=== PATIENT | female | born 1990 | race Caucasian/White ===

== ENCOUNTER 2023-03-02 11:49 | Outpatient (CLI) | payer BC, SELFPAY | END 2023-03-02 11:50 | disposition home or self-care (01) | LOC: NFLDREF 03-04 06:15 | PROVIDERS: Visit Provider Registered Nurse | DX: L65.9 Nonscarring hair loss, unspecified (principal) | CPT/HCPCS: 84443 ==

== ENCOUNTER 2023-07-12 19:37 | Emergency (ER) | payer BC, SELFPAY ==
[2023-07-12 19:40] VITALS: BP 121/78; PULSE 94; RESP 18; TEMP 36.8; O2SAT 99; BMI 27.4
[2023-07-12 20:17] LABS: Basophils Absolute Auto 0.01 K/uL (0.00-0.30); Basophils Percent Auto 0.1 % (0.0-3.0); Eosinophils Absolute Auto 0.01 K/uL (0.00-0.50); Eosinophils Percent Auto 0.1 % (0.0-7.0); Hematocrit 40.1 % (33.0-51.0); Immature Granulocytes Abs Auto 0.02 K/uL (0.00-0.30); Immature Granulocytes Pct Auto 0.3 %; Lymphocytes Percent Auto 5.3 % (20-44); Mean Corpuscular HGB Conc 35 gm/dL (32-36); Mean Corpuscular Hemoglobin 31 pg (26-34); Mean Corpuscular Volume 89 fL (80-100); Neutrophils Percent Auto 89.2 % (42.0-72.0); Platelet Count* 133 K/uL (140-440); RDW Coefficient of Variation % 11.9 % (11.5-15.5); Red Blood Count 4.53 m/uL (4.00-5.20); White Blood Count* 7.87 K/uL (4.50-11.00)
[2023-07-12] MEDS: ONDANSETRON 2 MG/ML inj 4 MG IVP (20:18)
[2023-07-12 20:19] LABS: Appearance Urine Clear (Clear); Bilirubin Urine Negative (Negative); Blood Urine Negative (Negative); Color Urine Yellow (Yellow); Glucose Urine Negative (Negative); Ketones Urine Negative (Negative); Leukocyte Esterase Urine Trace (Negative); Nitrite Urine Negative (Negative); Protein Urine Negative (Negative); Specific Gravity Urine 1.025 (1.000-1.030); Urobilinogen Urine 0.2 (0.2-1.0)
[2023-07-12] MEDS: 0.9 % SODIUM CHLORIDE 1000 ml 1,000 ML IV (20:25)
[2023-07-12 20:26] LABS: Slide Review Reflex No
[2023-07-12 20:30] LABS: Chloride* 102 mmol/L (96-114); Potassium* 4.2 mmol/L (3.6-5.1); Sodium* 135 mmol/L (135-149)
[2023-07-12 20:33] LABS: Anion Gap 8 mEq/L (7-15); Blood Urea Nitrogen* 16 mg/dL (5-24); Calcium* 9.8 mg/dL (8.4-10.6); Carbon Dioxide* 25 mmol/L (20-32); Creatinine* 0.4 mg/dL (0.5-1.5); Est. Creatinine Clearance* 189.02; Estimated Glomerular Filt Rate 135 ml/min; Glucose* 111 mg/dL (60-115)
[2023-07-12 20:36] LABS: Bacteria Urine Few; Mucus Urine Few; RBC Urine 0-2 (0-2); Squamous Epithelial Cell Urine Few (None-Few); WBC Urine 0-2 (0-5)
--- NOTE | 2023-07-12 21:28 | ED_ITS ---
HPI - General Adult General Date Seen: 07/12/23 Chief complaint: Nausea/Vomiting Stated complaint: fainted, 7 weeks preg Time Seen by Provider: 07/12/23 19:44 Source: patient, family and RN notes reviewed Mode of arrival: ambulatory Limitations: no limitations History of Present Illness HPI narrative: Patient is a 32-year-old , about 7 weeks by dates. She has had problems with nausea she says ever since realizing she was . She did not have significant problems with nausea and vomiting with her 1st . She has not really been able to eat very much because everything turns her stomach, but she has not had vomiting until today. She has been able to keep up with water, but she says anything else to drink seems to upset her stomach as well, today she tried some sugar free Gatorade and vomited multiple times. Her says that at 1 point she was throwing up in the bathroom and then was briefly syncopal. Awakened without difficulty. No injuries. No diarrhea, no abdominal pain, no fevers, no vaginal bleeding. General health is good. She does not smoke or drink. Related Data Home Medications Medication Instructions Recorded Confirmed docosahexaenoic acid 200 mg mg PO 01/14/23 01/14/23 capsule ( DHA) Allergies Allergy/AdvReac Type Severity Reaction Status Date / Time No Known Drug Allergies Allergy Verified 07/12/23 19:44 Review of Systems Status of ROS: Reports: 10 or more systems reviewed and unremarkable except as noted in History and below [facility] Medical History Normal spontaneous vaginal delivery ?O80 - Encounter for full-term uncomplicated delivery (ICD-10) Chorioamnionitis ?O41.1290 - Chorioamnionitis, unspecified trimester, not applicable or unspecified (ICD-10) Surgical History History of tonsillectomy and adenoidectomy ?Z90.89 - Acquired absence of other organs (ICD-10) History of placement of ear tubes ?Z96.22 - Myringotomy tube(s) status (ICD-10) Family History Grandfather Diabetes Family/Other Colon cancer Mother Colon polyp Aunt Colon polyp Social History Smoking Status: Never smoker Do you use any of these nicotine containing products: None Second hand tobacco smoke exposure: No How often do you have a drink containing alcohol: never AUDIT-C Alcohol total score: 0 Non-prescribed substance use: denies use Little interest or pleasure in doing things: not at all Feeling down, depressed, or hopeless: not at all Exam Narrative: Exam Narrative: Vital signs as noted above. In general, an alert, well-appearing patient. Head: Normocephalic, atraumatic. Eyes: Pupils are equal reactive. Extraocular movements are full. Conjunctivae are normal. ENT: Mucous membranes are moist. Throat is normal. Neck: Supple without lymphadenopathy. Heart: Regular rate and rhythm. No murmur or rub. Lungs: Clear bilaterally. No increased work of breathing, crackles or wheezes. Abdomen: Soft and nontender. No organomegaly. Extremities: Well perfused. No edema. No calf tenderness. Pulses intact. Neurologic: Patient is alert and oriented to person and place. Speech is fluent. Face is symmetric. Moves all extremities equally. Affect: Normal. Skin: Warm and dry. Well perfused. Const: Vital Signs, click to edit/add: Vital Signs - 24 hr 07/12/23 19:40 Temperature 98.3 F Pulse Rate [Pulse Oximeter] 94 Respiratory Rate 18 Blood Pressure [Ri ght Upper Arm] 121/78 Pulse Oximetry 99 Oxygen Delivery Me thod Room Air Course Course ED Course: Overall she is well-appearing, mildly tachycardic. Will establish an IV, give a L of normal saline, check some labs. An EKG done here showed a sinus rhythm, ventricular rate of 85, corrected QT of 447 milliseconds, normal [place] interval. No acute ST segment changes, normal T-waves. Overall, syncopal is likely vasovagal, perhaps with dehydration contributing. Labs here are generally reassuring. Her white blood cell count is normal, hemoglobin 14. Platelets slightly low 133. Metabolic panel shows normal sodium potassium, CO2 of 25, BUN of 16, creatinine of 0.4. UA is slightly concentrated but no ketones, 0-2 red cells and 0-2 white cells. She is feeling improved. I think it is reasonable to let her go home, will give her some Zofran, she can try Unisom and B6 as well. She has an appointment in about a week with her OB for her 1st visit, certainly can touch base with them if she does not feel things are improving with the Zofran. Is possible this is all related to hyperemesis, she could also just have a GI bug. If she has severe abdominal pain, high fevers, bloody stools, or other worsening, return to the emergency department at any time. Vital Signs Vital signs: Initial Vital Signs Temperature 98.3 F 07/12/23 19:40 Temperature Source Temporal Artery Scan 07/12/23 19:40 Pulse Rate 94 07/12/23 19:40 Respiratory Rate 18 07/12/23 19:40 Blood Pressure 121/78 07/12/23 19:40 Blood Pressure Mean 92 07/12/23 19:40 Blood Pressure Position Sitting 07/12/23 19:40 Pulse Oximetry 99 07/12/23 19:40 Oxygen Delivery Method Room Air 07/12/23 19:40 Vital Signs Temperature 98.3 F 07/12/23 19:40 Pulse Rate 94 07/12/23 19:40 Respiratory Rate 18 07/12/23 19:40 Blood Pressure 121/78 07/12/23 19:40 Pulse Oximetry 99 07/12/23 19:40 Oxygen Delivery Method Room Air 07/12/23 19:40 Temperature 98.3 F 07/12/23 19:40 Pulse Rate 94 07/12/23 19:40 Respiratory Rate 18 07/12/23 19:40 Blood Pressure 121/78 07/12/23 19:40 Pulse Oximetry 99 07/12/23 19:40 Oxygen Delivery Method Room Air 07/12/23 19:40 Medications Administered Medications: Discontinued Medications Generic Name Dose Route Start Last Admin Trade Name Freq PRN Reason Stop Dose Admin Sodium Chloride 1,000 mls @ 1,000 mls/hr 07/12/23 20:00 07/12/23 21:06 0.9 % Sodium Chloride 1000 Ml IV 07/12/23 20:59 Infused .Q1H WILBERT Infusion Ondansetron HCl 4 mg 07/12/23 19:54 07/12/23 20:18 Ondansetron 2 Mg/Ml Inj IVP 07/12/23 19:55 4 mg ONCE ONE Administration Medical Decision Making Lab Data Labs: Lab Results 07/12/23 07/12/23 Range/Units 19:54 20:10 WBC 7.87 (4.50-11.00) K/uL RBC 4.53 (4.00-5.20) m/uL Hgb 14.0 (12.0-16.0) gm/dL Hct 40.1 (33.0-51.0) % MCV 89 (80-100) fL MCH 31 (26-34) pg MCHC 35 (32-36) gm/dL RDW Coeff of Francisco Javier 11.9 (11.5-15.5) % Plt Count 133 L (140-440) K/uL Neut % (Auto) 89.2 H (42.0-72.0) % Lymph % (Auto) 5.3 L (20-44) % Taliaferro % (Auto) 5.0 (0.0-11.0) % Eos % (Auto) 0.1 (0.0-7.0) % Baso % (Auto) 0.1 (0.0-3.0) % Neut # (Auto) 7.00 (1.7-7.0) K/uL Lymph # (Auto) 0.40 L (0.90-2.90) K/uL Taliaferro # (Auto) 0.40 (0.00-0.90) K/UL Eos # (Auto) 0.01 (0.00-0.50) K/uL Baso # (Auto) 0.01 (0.00-0.30) K/uL Abs Immat Gran (auto) 0.02 (0.00-0.30) K/uL Imm/Tot Granulo (auto) 0.3 % Sodium 135 (135-149) mmol/L Potassium 4.2 (3.6-5.1) mmol/L Chloride 102 (96-114) mmol/L Carbon Dioxide 25 (20-32) mmol/L Anion Gap 8 (7-15) mEq/L BUN 16 (5-24) mg/dL Creatinine 0.4 L (0.5-1.5) mg/dL Estimated Creat Clear 189.02 Estimated GFR 135 ml/min Glucose 111 (60-115) mg/dL Calcium 9.8 (8.4-10.6) mg/dL Urine Color Yellow (Yellow) Urine Appearance Clear (Clear) Urine pH 7.0 (5.0-8.5) Ur Specific [place] 1.025 (1.000-1.030) Urine Protein Negative (Negative) Urine Glucose (UA) Negative (Negative) Urine Ketones Negative (Negative) Urine Blood Negative (Negative) Urine Nitrite Negative (Negative) Urine Bilirubin Negative (Negative) Urine Urobilinogen 0.2 (0.2-1.0) Ur Leukocyte Esterase Trace A (Negative) Urine RBC 0-2 (0-2) Urine WBC 0-2 (0-5) Ur Squamous Epith Cells Few (None-Few) Urine Bacteria Few A (None) Urine Mucus Few A (None) Discharge Plan Discharge Clinical Impression: Syncope, Vomiting during Patient Disposition: Home, Self-Care Condition: Improved Instructions: Nausea and Vomiting in (ED), Syncope (DC) Additional Instructions: Zofran if needed for further nausea or vomiting, you can try Unisom/B6 as well. If food does not seem possible, it is fine to stick with clear liquids for now, just make sure your getting some calories in. Call your OB Clinic if you do not find that things are stabilizing using Zofran. Return at any time for acute worsening such as high fevers, bloody stools, significant abdominal pain etcetera. Prescriptions: No Action DHA 200 mg capsule PO Follow Up/Referrals: Dayanna Dc, GLASS MELT OPERATOR [Primary Care Provider] - Stand Alone Forms: [employer] Info Instructions
== END 2023-07-12 21:10 | disposition home or self-care (01) ==
PROVIDERS: Emergency Provider Emergency Medicine; PCP Registered Nurse
DX: R11.2 Nausea with vomiting, unspecified (principal); R55 Syncope and collapse; Z3A.01 Less than 8 weeks gestation of pregnancy
CPT/HCPCS: 36415; 80048; 81001; 85025; 87086; 93005; 96374; 99283; 99284; J2405; J7030

== ENCOUNTER 2023-07-16 07:03 | Outpatient (CLI) | payer BC, SELFPAY ==
--- NOTE | 2023-07-16 07:15 | US_ITS ---
Patient: YULISSA DOYLE Facility:?[facility] Patient ID:?[id number] Site Patient ID:?[id number]. Site :?1990 Study:?US-OB Pelvis DATING AND VIABILITY-07/16/2023 7:35:53 AM Ordering Physician:?DENISHA DAVIS Final Report: INDICATION: First trimester scan, establish dates. COMPARISON: None. TECHNIQUE: Real-time parham-scale imaging of the pelvis was performed. FINDINGS: Sonographic imaging demonstrates a single living intrauterine gestation. The embryo demonstrates a regular cardiac rate measuring 180 beats per minute. The embryo`s crown-rump length measurement of 1.9 cm corresponds to a gestational age of 8 weeks 3 days with a sonographic due date of 02/22/2024. There is a normal-appearing yolk sac. There are no gross abnormalities noted within the embryo at this early state of development. The gestational sac has a normal appearance. There is no evidence of a perigestational hemorrhage. The amount of fluid within the sac appears appropriate for gestational age. The cervix is closed. The myometrium appears normal. The ovaries are of normal size. Corpus luteal cyst right ovary measuring 2.7 x 2.0 x 2.3 cm. There are no suspicious fluid collections noted in the cul-de-sac. IMPRESSION: Normal first trimester OB ultrasound exam. Gestational age calculated at 8 weeks 3 days with a sonographic due date of 02/22/2024. Dictated by Stephon Franklin MD @ 07/16/2023 11:43:59 AM Signed by:?Stephon Franklin MD @07/16/2023 11:43:59 AM (Electronic Signature)
== END 2023-07-16 07:04 | disposition home or self-care (01) ==
LOC: US 07:04
PROVIDERS: Visit Provider Registered Nurse
DX: Z34.91 Encounter for supervision of normal pregnancy, unspecified, first trimester (principal); Z3A.08 8 weeks gestation of pregnancy
CPT/HCPCS: 76817; 86592; 86703; 86704; 86706; 86762; 86787; 86803; 86850; 86900; 86901; 87086; 87340; 87491; 87591

== ENCOUNTER 2023-09-14 15:52 | Outpatient (CLI) | payer BC, SELFPAY ==
--- OUTSIDE RECORDS SUMMARY | 2023-09-14 15:54 | XMS_ITS | Clinical Summary ---
Author Name Unknown Organization [facility] [employer] Address [place], [place] [address] Care Team Providers Care Emergency Veterinarian Name Role Phone Tayler Greene MD Primary Care Prov ider Allergies No known active allergies Medications Medication Sig Dispensed Refills Start Date End Date Status Tri-Linyah 0.18/0.215/0.25 mg-35 mcg (28) tablet 03/25/2021 Active Active Problems Problem Noted Date Diagnosed Date Other acne 04/25/2007 Immunizations Name Administration Dates Next Due AMB Influenza, IIV4 PF (=>6 mos Flulaval,Fluzone Fluarix)(Flu Clinic Only) 01/28/2018 DT (Age < 7 years) 09/12/2002 DTP 07/11/1992, 2,03/21/1991,12/26 HIB PRP-T (ActHIB,Hiberix) 06/05/1992,,03/21/1991,12/26 Hepatitis B (Peds) 06/11/2003,10/26/2002, 003 Human Papilloma Virus Vaccine 03/04/2007, 007,09/01/2006 03/04/2007 Influenza, IIV3 (Age >=3 years) 01/25/2009,03/08,03/08/2007 Influenza, IIV4 (=>6mos) MDV 01/26/2017 MMR 09/12/2002,06/05/1992 Meningococcal Vaccine (Menactra) 10/06/2005 Oral Polio Vaccine 07/11/1992,03/21/1991, 991 Tdap 07/03/2010 Family History Medical History Relation Name Comments Good Health Father Good Health Mother Relation Name Status Comments Brother Alive Father Alive Maternal Grandfather Alive Maternal Grandmother Alive Mother Alive Paternal Grandfather Alive Paternal Grandmother Alive Social History Tobacco Use Types Packs/Day Years Used Date Smoking Tobacco: Former Cigarettes Smokeless Tobacco: Never Tobacco Cessation:Counseling Given: Yes Comments:quit apr 2018 Alcohol Use Standard Drinks/Week Comments Yes 1 (1 standard drink = 0.6 oz pur e alcohol) PHQ-2 Answer Date Recorded PHQ-2 Score 0 06/25/2018 Sex and Gender Information Value Date Recorded Sex Assigned at Not on file Gender Identity Not on file Sexual Orientation Not on file Obstetrics History Para Term AB IAB SAB Ectopic Multiple Livin g Live Births 0 0 0 0 0 0 0 0 0 0 Last Filed Vital Signs Vital Sign Reading Time Taken Comments Blood Pressure 118/64 08/19/2021 1:58 PM CDT Pulse 74 08/19/2021 1:58 PM CDT Temperature 36.8 ??C (98.2 ??F) 07/28/2021 5:59 PM CD T Respiratory Rate 16 07/28/2021 5:59 PM CDT Oxygen Saturation 99% 07/28/2021 5:59 PM CDT Inhaled Oxygen Concentration - - Weight 75.8 kg (167 lb) 07/28/2021 5:59 PM CDT Height 167 cm (5' 5.75) 02/01/2019 3:59 PM CDT Body Mass Index 27.16 02/01/2019 3:59 PM CDT Plan of Treatment Health Maintenance Due Date Last Done Comments HIV for age 15-65 2005 Hepatitis C screening for age 18-79 2008 Depression screening for age 12+ 09/13/2019 09/12/2018, 11/15/2017, 07/27/2016 BMI (ht and wt on same day) for age 18+ 02/02/2020 02/01/2019, 09/12/2018, 11/15/2017, Additional history exists Tetanus booster 07/03/2020 07/03/2010 COVID-19 vaccine series ( season) 2022 04/29/2021, 10/01/2020, 09/10/2020 Influenza for age 9-49 12/26/2023 8, 01/26/2017, 01/25/2009, Additional history exists Pap test for age 21-65 09/08/2024 2, 09/08/2021, 09/12/2018, Additional history exists Tdap Completed 07/03/2010 Pneumococcal series for age 6-64 Aged Out No longer eligible based on patient's age to complete this topic Procedures Procedure Name Priority Date/Time Associated Diagnosis Comments HPV THIN PREP Routine 09/08/2021 5:30 PM CDT from Last 3 Months or Most Recently Relevant to Health Maintenance Results * HPV HIGH RISK (09/08/2021 5:30 PM CDT) TYPE 16 Negative Negative 09/11/2021 10:54 AM CDT [facility] TYPE 18 Negative Negative 09/11/2021 10:54 AM CDT [facility] OTHER HIGH RISK TYPES Negative Negative 09/11/2021 10:54 AM CDT [facility] Other (Cervical/Vagina l) 09/08/2021 5:30 PM CDT 09/10/2021 7:42 AM CDT Narrative [facility] - 09/11/2021 10:54 AM CDT HPV types 16, 18, 31, 33, 35, 39, 45, 51, 52, 56, 58, 59, 66 and 68 DNA were undetectable or below the pre-set threshold. Methodology: Rema Regina 4800 HPV Test Dayanna Dc NP [facility] [address] [place] [address], from Last 3 Months or Most Recently Relevant to Health Maintenance Care Teams Emergency Veterinarian Relationship Specialty Start Date End Date Tayler Greene MD [address] [place] [address] PCP - General 09/25/05
== END 2023-09-14 15:53 | disposition home or self-care (01) ==
PROVIDERS: Visit Provider Registered Nurse
DX: Z34.92 Encounter for supervision of normal pregnancy, unspecified, second trimester (principal); Z3A.16 16 weeks gestation of pregnancy
CPT/HCPCS: 82565; 82570; 84156; 84450; 84460; 84520

== ENCOUNTER 2023-10-08 12:50 | Outpatient (CLI) | payer BC, SELFPAY ==
--- OUTSIDE RECORDS SUMMARY | 2023-10-08 12:52 | XMS_ITS | Clinical Summary ---
Author Organization [employer] [facility] [email or web address] [facility] Address [place], [place] [address] Care Team Providers Care Sales And Service Advisor Name Role Phone Tayler Greene MD Primary [...] 16 Negative Negative 09/11/2021 10:54 AM CDT [facility] TYPE 18 Negative Negative 09/11/2021 10:54 AM CDT [facility] OTHER HIGH RISK TYPES Negative Negative 09/11/2021 10:54 AM CDT [facility] Other (Cervical/Vagina l) 09/08/2021 5:30 PM CDT 09/10/2021 7:42 AM CDT Narrative [facility] - 09/11/2021 10:54 AM CDT HPV types 16, 18, 31, 33, 35, 39, 45, 51, 52, 56, 58, 59, 66 and 68 DNA were undetectable or below the pre-set threshold. Methodology: Rema Regina 4800 HPV Test Dayanna Dc NP [facility] [address] [place] [address], from Last 3 Months or Most Recently Relevant to Health Maintenance Care Teams Sales And Service Advisor Relationship Specialty Start Date End Date Tayler Greene MD [address] [place] [address] PCP - General 09/25/05
--- NOTE | 2023-10-08 13:00 | CRLHL7_ITS ---
For Patients: As a result of the Century Cures Act, medical imaging exams and procedure reports are released immediately into your electronic medical record. You may view this report before your referring provider. If you have questions, please contact your health care provider. HISTORY: anatomic survey. COMPARISON: None available of this gestation. TECHNIQUE: Ultrasound examination of the is performed with transabdominal technique. FINDINGS: A single intrauterine gestation is seen in cephalic presentation with regular cardiac activity at 134 beats per minute. The placenta is anterior and is free of the cervical os. The placental grade is 1 and the amniotic fluid volume is normal. Single deepest vertical pocket: 5.2 cm. The cervix is nondilated and is normal in length measuring 3.9 cm. BPD: 4.8 cm 20 weeks 4 days HC: 17.7 cm 20 weeks 1 day AC: 16.2 cm 21 weeks 2 days. 80th percentile. FL: 3.5 cm 22 weeks 0 days The estimated age by ultrasound is 21 weeks 0 days, with an estimated date of delivery of 02/18/2024. This correlates well with the clinical age of 20 weeks 1 day. The ultrasound ratios are normal. The estimated weight of 390 grams is at the 89th percentile based on the clinical dates. The anatomic survey demonstrates normal appearing intracranial structures with a normal septum pellucidum and normal cerebellum. The nuchal thickness is normal at 5 mm, and the lateral ventricle is normal in diameter at 6 mm. The upper lip, 4 chamber heart, left and right ventricular outflow tracts, diaphragm, stomach, cord insertion site, 3-vessel cord, kidneys, bladder and spine are normal in appearance. IMPRESSION: 1. Single intrauterine gestation in cephalic presentation with regular cardiac activity. 2. Estimated gestational age is 21 weeks 0 days. 3. Estimated weight of 390 grams is at the 89th percentile based on the clinical dates. Dictated by Ford Taylor MD @ 10/11/2023 12:05:25 AM (Electronically Signed)
== END 2023-10-08 12:51 | disposition home or self-care (01) ==
LOC: US 12:50
PROVIDERS: Visit Provider Registered Nurse
DX: Z34.92 Encounter for supervision of normal pregnancy, unspecified, second trimester (principal); Z3A.21 21 weeks gestation of pregnancy
CPT/HCPCS: 76805

== ENCOUNTER 2023-12-07 08:05 | Outpatient (CLI) | payer BC, SELFPAY ==
--- OUTSIDE RECORDS SUMMARY | 2023-12-09 15:03 | XMS_ITS | Clinical Summary ---
Author Organization [employer] [facility] [employer] [facility] Address [place], [place] [address] Care Team Providers Care Educational Institution Curator Name Role Phone Tayler Greene MD Primary [...] 16 Negative Negative 09/11/2021 10:54 AM CDT [facility] TYPE 18 Negative Negative 09/11/2021 10:54 AM CDT [facility] OTHER HIGH RISK TYPES Negative Negative 09/11/2021 10:54 AM CDT [facility] Other (Cervical/Vagina l) 09/08/2021 5:30 PM CDT 09/10/2021 7:42 AM CDT Narrative [facility] - 09/11/2021 10:54 AM CDT HPV types 16, 18, 31, 33, 35, 39, 45, 51, 52, 56, 58, 59, 66 and 68 DNA were undetectable or below the pre-set threshold. Methodology: Rema Regina 4800 HPV Test Dayanna Dc NP [facility] [address] [place] [address], from Last 3 Months or Most Recently Relevant to Health Maintenance Care Teams Educational Institution Curator Relationship Specialty Start Date End Date Tayler Greene MD [address] [place] [address] PCP - General 09/25/05
== END 2023-12-07 08:06 | disposition home or self-care (01) ==
LOC: NFLDREF 12-09 14:59
PROVIDERS: Visit Provider Obstetrics & Gynecology
DX: Z34.83 Encounter for supervision of other normal pregnancy, third trimester (principal)
CPT/HCPCS: 86592

== ENCOUNTER 2024-01-28 12:30 | Outpatient (CLI) | payer BC, SELFPAY ==
[2024-01-28] VITALS (13 sets, daily range): BP systolic 120–137; BP diastolic 78–97; PULSE 86–105; TEMP 36.9; O2SAT 100
--- OUTSIDE RECORDS SUMMARY | 2024-01-28 12:33 | XMS_ITS | Clinical Summary ---
Author Organization [employer] [facility] [employer] [facility] Address [place], [place] [address] Care Team Providers Care Ecological Modeler Name Role Phone Tayler Greene MD Primary [...] 07/03/2020 07/03/2010 COVID-19 vaccine series ( season) 2023 04/29/2021, 10/01/2020, 09/10/2020 Influenza for age 9-49 12/26/2023 8, 01/26/2017, 01/25/2009, Additional history exists Pap test for age 21-65 09/08/2024 2, 09/08/2021, 09/12/2018, Additional history exists Tdap Completed 07/03/2010 Pneumococcal series for age 6-64 Aged Out No longer eligible based on patient's age to complete this topic Procedures Procedure Name Priority Date/Time Associated Diagnosis Comments HPV HIGH RISK Routine 09/08/2021 5:30 PM CDT from Last 3 Months or Most Recently Relevant to Health Maintenance Results * HPV HIGH RISK (09/08/2021 5:30 PM CDT) TYPE 16 Negative Negative 09/11/2021 10:54 AM CDT [facility] TYPE 18 Negative Negative 09/11/2021 10:54 AM CDT [facility] OTHER HIGH RISK TYPES Negative Negative 09/11/2021 10:54 AM CDT [facility] Other (Cervical/Vagina l) 09/08/2021 5:30 PM CDT 09/10/2021 7:42 AM CDT Narrative [facility] - 09/11/2021 10:54 AM CDT HPV types 16, 18, 31, 33, 35, 39, 45, 51, 52, 56, 58, 59, 66 and 68 DNA were undetectable or below the pre-set threshold. Methodology: Rema Regina 4800 HPV Test Dayanna Dc NP [facility] [address] [place] [address], from Last 3 Months or Most Recently Relevant to Health Maintenance Care Teams Ecological Modeler Relationship Specialty Start Date End Date Tayler Greene MD [address] [place] [address] PCP - General 09/25/05
[2024-01-28 13:34] LABS: Total Protein Urine < 5 mg/dL
[2024-01-28 13:36] LABS: Creatinine Urine 133.8 mg/dL; Protein Creatinine Ratio Urine 0.04 (0-0.19)
[2024-01-28 13:38] LABS: Hematocrit 35.2 % (33.0-51.0); Hemoglobin* 12.3 gm/dL (12.0-16.0); Mean Corpuscular HGB Conc 35 gm/dL (32-36); Mean Corpuscular Hemoglobin 30 pg (26-34); Mean Corpuscular Volume 87 fL (80-100); Platelet Count* 146 K/uL (140-440); Red Blood Count 4.07 m/uL (4.00-5.20); White Blood Count* 10.11 K/uL (4.50-11.00)
[2024-01-28 13:44] LABS: Slide Review Reflex No
[2024-01-28 13:53] LABS: Alanine Aminotransferase* 12 U/L (4-35); Aspartate Amino Transferase* 25 U/L (12-35); Blood Urea Nitrogen* 18 mg/dL (5-24); Creatinine* 0.4 mg/dL (0.5-1.5); Estimated Glomerular Filt Rate 134 ml/min
--- NOTE | 2024-01-28 16:10 | PM.OBLDTN ---
OB - Triage/Final Diagnosis Visit Information Time Seen by Provider: 16:10 Date Seen: 01/28/24 Date of evaluation: 01/28/24 Narrative: Linda is a 33 year old 2 para 1001 at 36.1 weeks gestation by LMP, who presents to triage for BP monitoring. She usually gets her BP done at the end of the visit and report that this time she had a cervical exam immediately prior. Her BPs in clinic were: 146/100 @1148, 134/94 @1155, 142/82 @1226. She had two more elevated BP 137/92 @ 1311 and 134/97 @ 1327. However not other elevated BP after 4 hours of monitoring. Pre-eclampsia labs on 01/27: Hgb 12.3 Plt 146 Cr 0.4 ALT 12 AST 25 Denies any persistent headache, vision changes, SOB, right upper quadrant/epigastric pain, or rapidly expanding edema. Overall, she feels well throughout . We discussed that right now she does not meet the strict definition of any hypertensive disorders as her elevated BP are not 4 hours apart. I recommended QD BP and symptom monitoring. She is call if she has BP equal to or higher than 140/90. She is to come in if she has BP >/= 160/110 or has symptoms of severe pre-eclampsia. She understands that if she rules in for GHTN or Pre without severe features, delivery would be at the latest 37 week or time of diagnosis after that. If she has sever features, I would recommend delivery upon diagnosis as she already passed 34 weeks. Plan for close follow up at the beginning of the next week for visit and BP check. Patient is amenable to this plan. Strict ED and labor precautions given. NST: - Baseline 130 bpm, moderate variability, multiple acceleration, negative deceleration - Irregular contractions, nonpalpable to patient. Evaluation Laboratory results: Laboratory Tests 01/28/24 01/28/24 Range/Units 13:18 13:08 WBC 10.11 (4.50-11.00) K/uL RBC 4.07 (4.00-5.20) m/uL Hgb 12.3 (12.0-16.0) gm/dL Hct 35.2 (33.0-51.0) % MCV 87 (80-100) fL MCH 30 (26-34) pg MCHC 35 (32-36) gm/dL Plt Count 146 (140-440) K/uL BUN 18 (5-24) mg/dL Creatinine 0.4 L (0.5-1.5) mg/dL Estimated GFR 134 ml/min AST 25 (12-35) U/L ALT 12 (4-35) U/L Urine Creatinine 133.8 mg/dL Protein/Creatinin Ratio 0.04 (0-0.19) Urine Total Protein < 5 mg/dL Vital signs: Vital Signs - 24 hr 01/28/24 12:46 01/28/24 12:51 01/28/24 12:56 Temperature Pulse Rate 89 Blood Pressure 126/83 Pulse Oximetry 100 100 01/28/24 13:00 01/28/24 13:11 01/28/24 13:27 Temperature 98.4 F Pulse Rate 99 99 Blood Pressure 137/92 H 134/97 H Pulse Oximetry 01/28/24 13:42 01/28/24 13:57 01/28/24 14:11 Temperature Pulse Rate 86 93 95 Blood Pressure 137/86 130/89 128/84 Pulse Oximetry 01/28/24 14:44 01/28/24 15:14 01/28/24 15:44 Temperature Pulse Rate 86 89 87 Blood Pressure 120/78 123/80 122/82 Pulse Oximetry
--- NOTE | 2024-01-28 16:42 | PC.OBNST ---
NST Note NST Note Start: 01/28/24 12:41 Freq: ONCE Status: Active Protocol: Document 01/28/24 12:41 [facility] (Rec: 01/28/24 16:42 [facility] [id number]) NST Note 2 Para (# of births) 1 EDC 02/24/24 Gestational Age In Weeks & Days 36 Weeks & 1 Days Patient Presented with Complaint(s) of Other Other Complaints Observation to rule out high blood pressure and pre eclampsia Reactive Yes Appropriate for Gestational Age Yes NAEEM Martinez Date 01/28/24 Reactive Yes Appropriate for Gestational Age Yes NAEEM Dixon Date 01/28/24 OB NST charge Yes Complete NST Note via Write Note Yes The provider's electronic signature indicates the NST is reactive/appropriate for gestational age. *Note to provider: If an addendum is required, open the patient's chart and click on the note under the Nurse/Allied Health tab.
== END 2024-01-28 16:30 | disposition home or self-care (01) ==
LOC: OB OUT 12:32 → OB 12:32
PROVIDERS: Visit Provider Obstetrics & Gynecology
DX: O99.113 Other diseases of the blood and blood-forming organs and certain disorders involving the immune mechanism complicating pregnancy, third trimester (principal); D69.6 Thrombocytopenia, unspecified; Z3A.36 36 weeks gestation of pregnancy
CPT/HCPCS: 36415; 59025; 82565; 82570; 84156; 84450; 84460; 84520; 85027; 87081; 87653; G0463

== ENCOUNTER 2024-02-02 15:54 | Inpatient (IN) | payer BC, SELFPAY ==
[2024-02-02] VITALS (11 sets, daily range): BP systolic 110–134; BP diastolic 61–80; PULSE 78–99; RESP 16; TEMP 36.7–37.1; O2SAT 98–100; BMI 33.0
--- OUTSIDE RECORDS SUMMARY | 2024-02-02 15:58 | XMS_ITS | Clinical Summary ---
Author Organization [facility] Address [place], [place] [address] Care Team Providers Care Automotive Salesperson Name Role Phone Tayler Greene MD Primary [...] 16 Negative Negative 09/11/2021 10:54 AM CDT [facility] TYPE 18 Negative Negative 09/11/2021 10:54 AM CDT [facility] OTHER HIGH RISK TYPES Negative Negative 09/11/2021 10:54 AM CDT [facility] Other (Cervical/Vagina l) 09/08/2021 5:30 PM CDT 09/10/2021 7:42 AM CDT Narrative [facility] - 09/11/2021 10:54 AM CDT HPV types 16, 18, 31, 33, 35, 39, 45, 51, 52, 56, 58, 59, 66 and 68 DNA were undetectable or below the pre-set threshold. Methodology: Rema Regina 4800 HPV Test Dayanna Dc NP [facility] [address] [place] [address], from Last 3 Months or Most Recently Relevant to Health Maintenance Care Teams Automotive Salesperson Relationship Specialty Start Date End Date Tayler Greene MD [address] [place] [address] PCP - General 09/25/05
[2024-02-02] MEDS: miSOPROStoL 25 MCG/0.25 TABLET VAGINAL ×3 (17:13→23:19)
--- NOTE | 2024-02-02 18:27 | P.OBHP_ITS ---
OB - H&P: HPI Labor/Induction History of Present Illness Time Seen by Provider: 18:00 Date Seen: 02/02/24 Chief Complaint: IOL Chief complaint: Maternity Narrative: The patient is a 33 year old at 36w6d GA by LMP, who presents for IOL in the setting of gestational HTN. is otherwise complicated by resolved gestational thrombocytopenia, history of 3rd degree laceration and inadequate pain control with epidural previously. She presents for scheduled IOL. She denies any regular/painful uterine contractions, vaginal bleeding or leaking of fluids. Endorses active movement. Denies headache, vision changes or RUQ pain. Specific Issues/Plans G 2 P 1 Partner: [] H&P: By Dr. Cruz on 01/31 # GHTN * Dx on 02/01/24 due to mild range BP >4 hours apart and P/C ratio of 0.11. * Consented for IOL. Cervical ripening at 36w6d on 02/02/24. PV misoprostol. # Nausea and vomiting. Prescription for Zofran renewed. ED visit at 7 weeks for IV fluids and zofran. # History of 3rd degree laceration and chorioamnionitis with 1st delivery. # Inadequate pain control with epidural. Requests ITN placed during this labor. * Anesthesia consult placed 12/30: [] * # Gestational thrombocytopenia (RESOLVED) - Plt 120 on 12/06 - Stable Plt at 116 on 01/13 - Plt 148 on 01/31 Imaging: [Summary of level II or follow up US here; BPP scores not necessary] Vaccinations: COVID: Completed, not up-to-date with booster Flu: Administered at 1st OB visit Tdap: 12/17/23 RSV: 01/14/24 32 week mental health: PHQ-9 = 0, AMALIA = 0 Last pap: [] Meds Home Medications and Allergies Home Medications ?Medication ?Instructions ?Recorded ?Confirmed ?Type docosahexaenoic acid 200 mg See Rx Instructions PO .COMPLEX 01/14/23 02/02/24 History capsule ( DHA) aspirin 81 mg chewable tablet 81 mg PO QDAY 11/05/23 02/02/24 History Allergies Allergy/AdvReac Type Severity Reaction Status Date / Time No Known Drug Allergies Allergy Verified 02/02/24 17:37 OB - H&P: Exam Physical Exam: Vital signs: Pulse BP 99 134/75 02/02/24 16:28 02/02/24 16:28 Narrative: General: Alert and oriented, in no acute distress Psych: Appropriate mood and affect Abdomen: Gravid. Non-tender. FHR: Category 1. FHR baseline 130bpm, moderate variability, accelerations present and decelerations absent [place]: No contractions Cervix: Closed on 01/[address] Cruz OB - Problem Based A/P Additional Plan (1) Gestational hypertension: Status: Acute (2) Gestational thrombocytopenia: Status: Acute Plan Admit to L&D for IOL for gestational HTN. is otherwise complicated by history of 3rd degree laceration, poor pain control with epidural and resolved gestational thrombocytopenia. Last HELLP Labs were 01/31, within normal limits. - Normotensive on admission. Plan diligent BP monitoring and repeat labs as needed. - Start IOL with cytotec per protocol. - BT A+, GBS negative.
[2024-02-03] VITALS (59 sets, daily range): BP systolic 92–149; BP diastolic 53–99; PULSE 74–120; RESP 16–18; TEMP 36.2–37.1; O2SAT 98–99
[2024-02-03] MEDS: MORPHINE 10 MG/ML inj IM (01:40)
[2024-02-03] MEDS: hydrOXYzine pamoate 25 MG CAPSULE 100 MG PO (01:40)
[2024-02-03] MEDS: miSOPROStoL 25 MCG/0.25 TABLET VAGINAL ×2 (02:23→05:23)
[2024-02-03 08:31] LABS: Basophils Percent Auto 0.1 % (0.0-3.0); Eosinophils Percent Auto 0.8 % (0.0-7.0); Hematocrit 34.9 % (33.0-51.0); Hemoglobin* 11.7 gm/dL (12.0-16.0); Immature Granulocytes Pct Auto 0.4 %; Lymphocytes Percent Auto 12.8 % (20-44); Mean Corpuscular HGB Conc 34 gm/dL (32-36); Mean Corpuscular Hemoglobin 30 pg (26-34); Mean Corpuscular Volume 88 fL (80-100); Monocytes Percent Auto 5.4 % (0.0-11.0); Neutrophils Percent Auto 80.5 % (42.0-72.0); Platelet Count* 128 K/uL (140-440); RDW Coefficient of Variation % 11.9 % (11.5-15.5); Red Blood Count 3.97 m/uL (4.00-5.20); White Blood Count* 11.99 K/uL (4.50-11.00)
[2024-02-03 08:41] LABS: Slide Review Reflex No
[2024-02-03] MEDS: fentaNYL 100 MCG/2 ML inj IVP (09:04)
[2024-02-03] MEDS: OXYTOCIN 30 unit/500 ML in NS 30 UNIT/500 ML BAG IVPB (11:16)
[2024-02-03] MEDS: LACTATED RINGERS 1000 ML 1,000 ML 50 ML IV (11:16)
--- NOTE | 2024-02-03 12:54 | P.OBPN_ITS ---
Subjective Time Seen by Provider: 08:30 Date Seen: 02/03/24 Narrative: - s/p misoprostol x 5 doses for cervical ripening - Patient feel more regular contractions but describes them as crampy and mild. - BP has been appropriate Objective Vital Signs: Last Vital Signs Temp 97.7 F 02/03/24 07:16 Pulse 89 02/03/24 09:12 Resp 16 02/03/24 07:16 BP 127/75 02/03/24 09:12 Pulse Ox 99 02/03/24 05:26 Pelvic Exam Dilation (cm): 1 Effacement (%): 50 Station: -3 Comments: - Cook cath (60cc/60cc) place @ 0900 after IV fentanyl was given for pain control. - Patient tolerated the procedure well. Assessment Status: Category l Heart Rate Baseline: 140 Detention Variability: Moderate (6-25) Monitor Accelerations: Present Monitor Decelerations: None Plan Plan: - Cook cath placed - Will start titrating pitocin per protocol
[2024-02-03] MEDS: LACTATED RINGERS 1000 ML 1,000 ML 1200 ML IV (17:31)
[2024-02-03] MEDS: ROPIVACAINE 0.2% 100 ml 100 ML 12 MG EPIDURAL (17:48)
[2024-02-03] MEDS: LIDOCAINE 2% (PF) 5 ML VIAL EPIDURAL (17:49)
--- NOTE | 2024-02-03 18:10 | P.ANBPRC_ITS ---
[facility] Medical History Normal spontaneous vaginal delivery ?O80 - Encounter for full-term uncomplicated delivery (ICD-10) Chorioamnionitis ?O41.1290 - Chorioamnionitis, unspecified trimester, not applicable or unspecified (ICD-10) Surgical History History of tonsillectomy and adenoidectomy ?Z90.89 - Acquired absence of other organs (ICD-10) History of placement of ear tubes ?Z96.22 - Myringotomy tube(s) status (ICD-10) Family History Grandfather Diabetes Family/Other Colon cancer Mother Colon polyp Aunt Colon polyp Social History What is your current living situation?: I presently have a place to live Problems where you live: no known problems In the past 12 months, utilities in danger of being shut off: no In past 12 months, lack of transportation kept you from medical appts, meetings, work, or getting things needed for daily living: no In the past 12 mos, have been you worried that your food would run out before you had money to buy more?: never true In the past 12 mos, the food you bought just didn't last and you didn't have money to buy more?: never true Smoking Status: Former smoker Do you use any of these nicotine containing products: None Second hand tobacco smoke exposure: No How often do you have a drink containing alcohol: never AUDIT-C Alcohol total score: 0 Non-prescribed substance use: denies use How often does anyone, including family, friends and others, physically hurt you : never How often does anyone, including family, friends and others, insult or talk down to you: never How often does anyone, including family, friends and others, threaten you with harm: never How often does anyone, including family, friends and others, scream or curse at you: never Little interest or pleasure in doing things: not at all Feeling down, depressed, or hopeless: not at all Meds Home Medications and Allergies Home Medications ?Medication ?Instructions ?Recorded ?Confirmed ?Type docosahexaenoic acid 200 mg See Rx Instructions PO .COMPLEX 01/14/23 02/02/24 History capsule ( DHA) aspirin 81 mg chewable tablet 81 mg PO QDAY 11/05/23 02/02/24 History Allergies Allergy/AdvReac Type Severity Reaction Status Date / Time No Known Drug Allergies Allergy Verified 02/02/24 17:37 Results Labs Labs: Laboratory Results - last 24 hr 02/02/24 08:18 WBC 11.99 H RBC 3.97 L Hgb 11.7 L Hct 34.9 MCV 88 MCH 30 MCHC 34 RDW Coeff of Francisco Javier 11.9 Plt Count 128 L Neut % (Auto) 80.5 H Lymph % (Auto) 12.8 L [place] % (Auto) 5.4 Eos % (Auto) 0.8 Baso % (Auto) 0.1 Neut # (Auto) 9.70 H Lymph # (Auto) 1.50 [place] # (Auto) 0.60 Eos # (Auto) 0.10 Baso # (Auto) 0.00 Abs Immat Gran (auto) 0.00 Imm/Tot Granulo (auto) 0.4 Blood Type A Positive Antibody Screen NEGATIVE Vital Signs Vital Signs: Last Vital Signs Temp 98.3 F 02/03/24 15:56 Pulse 100 02/03/24 18:09 Resp 17 02/03/24 14:29 BP 126/74 02/03/24 18:09 Pulse Ox 98 02/03/24 18:01 Weight: 92.986 kg Height: 167.64 cm Anesthesia Procedures Epidural Insertion Patient Location: OB Start Time: : Stop Time: 18:26 Start Date: 02/03/24 Stop Date: 02/03/24 Reason for Block: procedure for pain Patient Position: sitting Performed By: Katie Oreilly Preanesthetic Checklist: IV checked, risks and benefits discussed, monitors and equipment checked, pre-op evaluation, timeout performed and anesthesia consent Prep: chlorhexidine gluconate Monitoring: blood pressure monitoring, continuous pulse oximetry and heart rate Approach: midline Vertebral Space: lumbar (1-5) Epidural Technique: CONSTANTINO saline Needle Type: Tuohy needle Injection Technique: continuous catheter (continuous catheter) Needle gauge: 17 Needle Length (cm): 10 cm Needle Insertion Depth (cm): 8 Catheter Gauge: 19 Catheter Type: multi-orifice Catheter at skin depth (cm): 15 Test Dose Result: negative and lidocaine 1.5% with epinephrine 1 to 200,000
--- NOTE | 2024-02-03 20:35 | PM.OBPNL ---
Subjective Time Seen by Provider: 20:00 Date Seen: 02/03/24 Objective Vital Signs: Last Vital Signs Temp 97.1 F L 02/03/24 20:00 Pulse 84 02/03/24 20:29 Resp 18 02/03/24 20:00 BP 133/78 02/03/24 20:29 Pulse Ox 98 02/03/24 18:01 Pelvic Exam Dilation (cm): 4 Effacement (%): 50 Station: -2 Contractions Pitocin Rate (mU/min): 3 Assessment Status: Category l Heart Rate Baseline: 130 Monitor Accelerations: Present Monitor Decelerations: None Plan Plan: - s/p Epidural and comfortable - AROM @ 2003 with clear fluid - Will continue titrating Pitocin
[2024-02-04] VITALS (14 sets, daily range): BP systolic 116–139; BP diastolic 66–89; PULSE 74–110; RESP 16–20; TEMP 36.4–36.8; O2SAT 98–99
--- NOTE | 2024-02-04 00:12 | W.PM.VAGDEL1 ---
Procedure Delivery date: 02/03/24 Procedure Done: Global Events: Gestational Hypertension and Labor Induction Intrapartal Events: Labor Induction Delivery monitor: external FHT Route of delivery: Laceration description: Periurethral - 1st Degree Delivery repair: Chromic Estimated blood loss (mL): 50 Anesthesia type: Epidural Disposition: floor Narrative: Linda is a 33 year-old admitted on 02/02/24 at 36 and 6/7 weeks gestation for scheduled induction of labor due to gestational hypertension. GBS negative Labor Analgesia: Epidural Pitocin: For labor induction and active management of the 3rd stage AROM: 02/03/24 at 2004, with clear fluid Labor onset: 02/03/24 at 1835 Complete: 02/03/24 at 2341 Pushin02/03/24 at 2352 heart tones during second stage were category I At 2355 a viable female infant delivered in vertex OA presentation over intact via spontaneous vaginal delivery. The 's body was delivered in the usual manner without difficulty. The infant was placed on maternal abdomen. The cord was clamped and cut after a 30-60 second delay. The nose and mouth were bulb suctioned. weight: pending. 8 at 1 minute and 9 at 5 minutes. Shoulder dystocia: No. Nuchal cord: No Placenta delivered spontaneously and complete at 2359 with a 3-vessel cord. Placenta examined and noted to be complete. The cervix and vagina were inspected for lacerations, and 1 cm superficial skin tear noted and the vaginal fourchette. Laceration(s): 1st degree, repaired with 1 figure of 8 using 2-0 chromic Complications: None Estimated blood loss: 50 cc Sponge and needles counts are correct. Mother and were stable at the time of this note.
[2024-02-04] MEDS: IBUPROFEN 600 MG TABLET PO ×4 (03:09→21:30)
[2024-02-04] MEDS: ACETAMINOPHEN 500 MG TABLET 1000 MG PO ×3 (05:30→18:08)
--- NOTE | 2024-02-04 07:35 | PM.OBPNVD1 ---
OB - PN:Subj Subjective Date Seen: 02/04/24 Narrative: The patient feels well.? The pain is well controlled with current medications.? She has no new complaints.? She is worried since she has not yet pooped today and also did not yesterday. Would like a stool softener for twice daily. she is not yet passing gas, either. Urinary output is adequate and she is voiding without difficulty.? Has a good appetite, is tolerating a general diet.? Has scant amount of rubra lochia.? She is ambulating well. She is and reports connecting with the .? OB - PN: Obj Exam Physical Exam: Vital signs: Temp Pulse Resp BP Pulse Ox O2 Del Method 97.6 F 79 18 131/86 98 Room Air 02/04/24 05:20 02/04/24 05:20 02/04/24 05:20 02/04/24 05:20 02/04/24 05:20 02/04/24 05:20 Narrative: GENERAL APPEARANCE:? normal affect, alert, no distress MOOD:? appropriate CHEST:? clear to auscultation HEART:? regular rate and rhythm ABDOMEN:? soft, non-tender the uterine fundus is At Umbilicus, Midline and is appropriate for the stage of recovery. PERINEUM:? deferred. See nursing exam EXTREMITIES:? normal and minimal edema : OB - PN: Obj Data Labs Labs: Laboratory Results - last 24 hr 02/02/24 08:18 WBC 11.99 H RBC 3.97 L Hgb 11.7 L Hct 34.9 MCV 88 MCH 30 MCHC 34 RDW Coeff of Francisco Javier 11.9 Plt Count 128 L Neut % (Auto) 80.5 H Lymph % (Auto) 12.8 L [place] % (Auto) 5.4 Eos % (Auto) 0.8 Baso % (Auto) 0.1 Neut # (Auto) 9.70 H Lymph # (Auto) 1.50 [place] # (Auto) 0.60 Eos # (Auto) 0.10 Baso # (Auto) 0.00 Abs Immat Gran (auto) 0.00 Imm/Tot Granulo (auto) 0.4 Blood Type A Positive Antibody Screen NEGATIVE OB - PN: A/P Delivery Assessment and Plan (1) Gestational hypertension: Status: Acute (2) Gestational thrombocytopenia: Status: Acute (3) care and examination of lactating mother: Status: Acute (4) Normal spontaneous vaginal delivery: Problem details: 11/18/19 with partial 3rd degree perineal laceration. Status: Acute (5) First degree perineal laceration: Status: Acute Plan Anticipate discharge home with baby tomorrow.? Follow up in 3-5 days for a BP check, and at 2 weeks and 6 weeks.? , may see if needed? Hgb 11.7. ? GHTN diagnosed by elevated BP greater than 4 hours apart? Labs WNL or stable with trending? Pt has a BP cuff at home. Normotensive currently Otherwise routine PP care. Abdominal binder recommended. Can use Senna if needed. Plan day: 1 Plan: routine care
--- NOTE | 2024-02-04 10:01 | PM.ANPOST ---
Post Anesthesia Note Post Anesthesia Note Patient seen: Inpatient Respiratory Status: adequate Cardiovascular Status: adequate Mental Status: baseline Pain: adequate Temp: baseline Anesthetic awareness: no Complications: none Follow care: none
[2024-02-05] MEDS: ACETAMINOPHEN 500 MG TABLET 1000 MG PO ×2 (00:23→07:47)
[2024-02-05 00:30] VITALS: BP 118/79; PULSE 78; RESP 16; TEMP 36.3; O2SAT 98
[2024-02-05 05:06] VITALS: BP 122/81; PULSE 83; RESP 16; TEMP 36.4; O2SAT 99
[2024-02-05 06:49] LABS: Hemoglobin* 10.8 gm/dL (12.0-16.0)
[2024-02-05] MEDS: DOCUSATE SODIUM 100 MG CAPSULE PO (07:47)
[2024-02-05 08:20] LABS: Rapid Plasma Reagin (RPR) Non Reactive (Non Reactive)
[2024-02-05 08:58] VITALS: BP 114/80; PULSE 88; TEMP 36.7; O2SAT 99
--- NOTE | 2024-02-05 09:42 | PM.OBDSVD1 ---
DS: Providers Provider Date Seen: 02/05/24 Date of admission: 02/02/24 15:54 Primary care physician: Not a Local Provider Admitting Clinician: Evy Medina MD Attending Physician on discharge: Lisa Arevalo MD Date of Discharge: 02/05/24 DS: Diagnosis Discharge Diagnosis (1) Normal spontaneous vaginal delivery: Status: Acute Problem details: 11/18/19 with partial 3rd degree perineal laceration. 02/03/2024 with first-degree vaginal laceration (2) First degree perineal laceration: Status: Acute (3) Gestational hypertension: Status: Acute (4) care and examination of lactating mother: Status: Acute (5) Gestational thrombocytopenia: Status: Acute Exam Narrative: Exam Narrative: General: Pleasant, no acute distress Heart: Regular rate and rhythm, no murmur or gallop Lungs: Clear to auscultation bilaterally Abdomen: Soft, nontender, fundus well below umbilicus Lower extremities: 2+ edema to bilateral mid coates, no erythema Const: Vital Signs, click to edit/add: Vital Signs - 24 hr 02/04/24 11:45 02/04/24 16:01 02/04/24 20:00 Temperature 97.5 F L 98.0 F 98.3 F Pulse Rate [Bilate ral] 74 82 74 Respiratory Rate 20 16 Blood Pressure [Le ft Arm] 122/78 116/79 118/79 Pulse Oximetry 98 98 99 Oxygen Delivery Me thod Room Air Room Air Room Air 02/05/24 00:30 02/05/24 05:06 02/05/24 08:58 Temperature 97.4 F L 97.6 F 98.0 F Pulse Rate [Bilate ral] 78 83 88 Respiratory Rate 16 16 Blood Pressure [Le ft Arm] 118/79 122/81 114/80 Pulse Oximetry 98 99 99 Oxygen Delivery Me thod Room Air Room Air Room Air OB - DS: Summary Hospital Course Hospital Course: Linda is a 33-year-old G2 now P2 woman who is s/p at 37 0/7 weeks after an induction of labor for indication of gestational hypertension. Ob problem list # GHTN Dx on 02/01/24 due to mild range BP >4 hours apart and P/C ratio of 0.11. Consented for IOL. Cervical ripening at 36w6d on 02/02/24. PV misoprostol. # Nausea and vomiting. Prescription for Zofran renewed. ED visit at 7 weeks for IV fluids and zofran. # History of 3rd degree laceration and chorioamnionitis with 1st delivery. # Inadequate pain control with epidural. Requests ITN placed during this labor. Anesthesia consult placed 12/30: # Gestational thrombocytopenia (RESOLVED) - Plt 120 on 12/06 - Stable Plt at 116 on 01/13 - Plt 148 on 01/31 She had Cytotec for cervical ripening. She had Pitocin for induction of labor. She had an uncomplicated normal spontaneous vaginal delivery on 02/03/2024. She gave to a female . She had a first-degree laceration of the vaginal fourchette that was closed with chromic. EBL was 50 mL. Her hemoglobin on day 1 was 11.7, and platelets were 128. She has remained normotensive throughout this last day, and is required no antihypertensive medication. She is breast feeding. the patient has done well. Today, on day 2, she denies any heavy bleeding. She is ambulating and urinating without difficulty. Pain is well managed. Gender: Female Time Spent with Patient Time attestation: Total time spent providing and/or coordinating discharge services: Discharge Plan Discharge Disposition: Home, Self-Care Date of Admission: 02/02/24 15:54 Attending Provider on Discharge: Lisa Arevalo Primary Care Provider: Provider,Not a Local Condition: Stable Anticipated Discharge Date/Time: 02/05/24 09:58 Discharge Medications: New acetaminophen 500 mg Tablet 1,000 mg PO Q6H PRNQty: 0 0RF docusate sodium 100 mg Capsule 100 mg PO BID PRN (Reason: Constipation) Qty: 0 0RF ibuprofen 600 mg Tablet 600 mg PO Q6H PRNQty: 0 0RF Lanolin (HPA) 100 % Cream 1 applic topical Q1H PRNQty: 0 0RF Continued DHA 200 mg capsule See Rx Instructions PO .COMPLEX Rx Instructions: as directed orally; Discontinued aspirin 81 mg tablet,chewable 81 mg PO QDAY Discharge Orders: Discharge Order (Routine); Ordered 02/05/24 Ordered By: Lisa Arevalo Patient Education: OB Vaginal/Breast Feeding, OB High Blood Pressure DC Discharge Diet: Regular Follow Up Appointments: Provider,Not a Local [Primary Care Provider] - Lisa Arevalo MD [Staff Physician] - Forms: MyHealth Info Instructions Discharge Comments: Follow-up early next week for blood pressure check, 2 weeks and 6 weeks for visit
== END 2024-02-05 12:30 | disposition home or self-care (01) | DRG 560 ==
PROVIDERS: Admitting Provider Obstetrics & Gynecology; Visit Provider Obstetrics & Gynecology
DX: O13.4 Gestational [pregnancy-induced] hypertension without significant proteinuria, complicating childbirth (principal); Z3A.36 36 weeks gestation of pregnancy; Z37.0 Single live birth; O70.0 First degree perineal laceration during delivery; O99.12 Other diseases of the blood and blood-forming organs and certain disorders involving the immune mechanism complicating childbirth
CPT/HCPCS: 01967; 36415; 59200; 82565; 82570; 84156; 84450; 84460; 84520; 85018; 85025; 86592; 86850; 86900; 86901; 88307; A9270; C1726; J2270; J2371; J2795; J3010; J7120

== ENCOUNTER 2024-02-09 13:00 | Outpatient (CLI) | payer BC, SELFPAY ==
--- OUTSIDE RECORDS SUMMARY | 2024-02-09 13:03 | XMS_ITS | Clinical Summary ---
Author Organization [facility] [employer] [facility] Address [place], [place] [address] Care Team Providers Care Creative Arts Therapist Name Role Phone Tayler Greene MD Primary Care Prov ider Allergies No known active allergies Medications Medication Sig Dispensed Refills Start Date End Date Status Tri-Linyah 0.18/0.215/0.25 mg-35 mcg (28) tablet 03/25/2021 Active Active Problems Problem Noted Date Diagnosed Date Other acne 04/25/2007 Encounters Date Type Department Care Team Description 02/04/2024 Lab Requisition [facility] [phone] Lisa Arevalo MD from Last 3 Months Immunizations Name Administration Dates Next Due AMB [...] Procedure Name Priority Date/Time Associated Diagnosis Comments LAB TRACKING EVENT Routine 02/03/2024 11 :55 PM CDT PATH TISSUE EXAM PLACENTA Routine 02/03/2024 11:55 PM CDT HPV HIGH RISK Routine 09/08/2021 5:30 PM CDT from Last 3 Months or Most Recently Relevant to Health Maintenance Results * LAB TRACKING EVENT (02/03/2024 11:55 PM CDT) Other (Other) Client Collect / Unknown 02/03/2024 11:55 PM CDT 02/04/2024 1:08 PM CDT Lisa Arevalo MD LAB BILL ONLY [facility] [address] [place] [address], * PATH TISSUE EXAM PLACENTA (02/03/2024 11:55 PM CDT) Case Report Pathology Report ?Case: [id number] ? Authorizing Provider: ??Lisa Arevalo MD ?? Collected: ? 02/03/2024 2355 ? Ordering Location: ? [facility] ?Received: ?02/04/2024 1405 ? Pathologist: ? Arabella Hood MD ? Specimen: ?Placenta ? 02/07/2024 12:20 PM CDT [facility] Final Diagnosis A) PLACENTA, VAGINAL DELIVERY: 1. Third trimester yu placenta with the following characteristics: ? a. Weight: 390 grams (37 week 10-90th percentile weight range, 391 - 566 grams) ? b. Membranes/ surface: ?Negative for chorioamnionitis ? c. Umbilical cord: ?Three vessel cord ?Negative for funisitis ? d. Disc/Villi: ?Chorionic villi consistent with gestational age ?Minimal, focal chronic villitis (involving <<1 % of villi) ?Placental disc without infarcts ? e. Decidua/basal plate: ?No diagnostic abnormalities identified 02/07/2024 12:20 PM CDT [facility] Comment The pattern of chronic inflammation in this case is extremely focal and found at the decidua/basal plate. 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 In this case, the severity is considered to be low-grade. As implied by the name of this entity, the etiology of GIFTY is not entirely clear, but some data suggest that this may represent an abnormal maternal- alloimmune reaction. Low-grade chronic GIFTY is usually clinically silent. 02/07/2024 12:20 PM CDT [facility] Clinical Information 33-year-old female with hypertension 02/07/2024 12:20 PM CDT [facility] Gross Description A) Received fresh labeled with the patient's name and placenta, is a 390 gram, 19 x 18 x 3 cm yu placenta. Membranes insert marginally, are semiopaque singleton-pink and ruptured 6 cm from the marginal placental edge. Three-vessel cord inserts 3 cm from the marginal placental edge, is 53 cm long, averages 1 cm diameter and without discoloration, true cord knots or thrombi. surface is singleton-pink, blue-parham with diffuse thin vasculature. ??Maternal surfaces are complete with slightly roughened to fused surfaces and no placental loss. Cut surfaces are spongy and soft, deep red and without lesions. Filling Station Attendant sections are submitted 5 cassettes: 1. ??Membranes 2. ??Three-vessel cord 3. ??Placenta adjacent cord insertion, full-thickness 4-5. Random central placenta, full-thickness sections The specimen was placed in formalin at 2111 on 02/04/2024. LDW 02/04/2024 02/07/2024 12:20 PM CDT [facility] ENTRAL LAB[facility]ATORY Microscopic Description The final diagnosis is based on microscopic examination of appropriate sections of all specimens. 02/07/2024 12:20 PM CDT [facility] ENTRFL LABORATORY Additional Information Interpreted at [facility], Central Laboratory - [address], [place] [address] 02/07/2024 12:20 PM CDT [facility] Tissue SPECIMEN FROM PLACENTA / Unknown 02/03/2024 11:55 PM CDT 02/04/2024 2:05 PM CDT Lisa Arevalo MD PATHOLOGY/CYTOLOG Y [facility] [address] [place] [address], * HPV HIGH RISK (09/08/2021 5:30 PM CDT) TYPE 16 Negative Negative 09/11/2021 10:54 AM CDT [facility] TRAL LAB[facility]AT[facility] TYPE 18 Negative Negative 09/11/2021 10:54 AM CDT [facility] TRAL LABORATORY OTHER HIGH RISK TYPES Negative Negative 09/11/2021 10:54 AM CDT [facility] TRA LABORATORY Other (Cervical/Vagina l) 09/08/2021 5:30 PM CDT 09/10/2021 7:42 AM CDT Narrative [facility] - 09/11/2021 10:54 AM CDT HPV types 16, 18, 31, 33, 35, 39, 45, 51, 52, 56, 58, 59, 66 and 68 DNA were undetectable or below the pre-set threshold. Methodology: Rema Regina 4800 HPV Test Dayanna Dc NP [facility] [address] [place] [address], from Last 3 Months or Most Recently Relevant to Health Maintenance Care Teams Creative Arts Therapist Relationship Specialty Start Date End Date Tayler Greene MD [address] [place] [address] [facility] - General 09/25/05
--- NOTE | 2024-02-09 14:25 | W.PM.LAC.MC ---
Consult Note - Mom Date of Visit Date of visit: 02/09/24 Reason for consultation: Assistance Needed and Breast/Nipple Issue Visit Code: Visit Patient's Information Phone number: [phone] : 2 Para: 2 Allergies No Known Drug Allergies Allergy (Verified 02/02/24 17:37) Mother's medical history: Other (gestational hypertension) Mother's Medical History: Medical History (Updated 02/09/24 @ 00:01 by Anthony Hays) Normal spontaneous vaginal delivery ?O80 - Encounter for full-term uncomplicated delivery (ICD-10) Chorioamnionitis ?O41.1290 - Chorioamnionitis, unspecified trimester, not applicable or unspecified (ICD-10) Delivery Information Delivery type: Vaginal Gestational Age: 37 Gestational Weight For Age: AGA Weight: 2.72 kg Baby's Information Baby's Age at Visit: 6 days Baby's Provider or Clinic: [facility] Jaundice: Yes Past Experience Past Experience: Yes Current Frequency of Day Feedings: every 2-3 hours, needs waking for most feeding Frequency of Night Feedings: every 3 hours Both Breasts: No Suck: strong Latch: using nipple shield, shallow on shield Length of Time: 8-15 minutes, one breast only for most feeds Goals: 1 year Pumping Pumping: No Quantity Pumped: Lots of milk with letdown, can collect 1-2 oz easily Supplementing EBM Supplement: No Formula Supplement: No Baby Elimination Number of Wet Diapers a Day: 6 Number of BM a Day: 9 yesterday, 3 so far today Breast/Nipple Condition Breast Information: Breasts are symmetrical with rounded lower quadrants, intramammary distance is less than 1.5 inches. Slight erythema on left breast, which is better after nursing. Nipples are supple, everted prior to feeding. Breast Shape: Round and Firm Engorgement: Yes Interventions for Engorgement: Warm Pack, Cold Pack and Hand Expressing Breast Milk Maternal Nipple Condition - Left: Common Nipple Maternal Nipple Condition - Right: Common Nipple Sore Nipples: No Baby Assessment Skin: Normal Tongue/frenulum: Normal/elastic Palate: Average Lips: Relaxed and Symmetrical Jaw Alignment: Symmetrical Mucosa: [place], moist Onsite Observation Pre-Feed weight: 2.624 kg Post-Feed weight: 2.696 kg Milk Transferred (mL): 72 Position: Football Attachment/latch-on achieved: Easily Suck pattern: Suck burst and normal rest Swallow: Audible, consistent and Gulping Behavior following feed: Relaxed, sleepy Pre-Nursing Left Nipple: Within Normal Limits Pre-Nursing Right Nipple: Within Normal Limits Post-Nursing Left Nipple: Within Normal Limits Assessments/Interventions Assessments/Interventions: Mom with significant engorgement, causing challenges of latching baby without nipple shield. Handouts Provided: Lymphatic breast drainage Feeding Plan: Continue feeding every 2-3 hours; one breast/feed ok if baby nurses well. This may help downregulate overall milk supply Hand express from breast not nursed if needed for comfort; try not to overpump as this will promote increased supply Discussed measures for engorgement: breast gymnastics, lymphatic breast drainage, cool packs after nursing Ibuprofen for pain management Taught reverse pressure softening for when ready to try latching baby to the breast when engorgement subsides Follow-Up Suggested follow up: Appointment in 1 week (if desired to help with latching without nipple shield) Time Spent Time spent with patient (min): 60 (Reviewing EMR and face to face with patient, , and baby) Meds Home Medications and Allergies Home Medications ?Medication ?Instructions ?Recorded ?Confirmed ?Type docosahexaenoic acid 200 mg See Rx Instructions PO .COMPLEX 01/14/23 02/02/24 History capsule ( DHA) Allergies Allergy/AdvReac Type Severity Reaction Status Date / Time No Known Drug Allergies Allergy Verified 02/02/24 17:37
== END 2024-02-09 13:01 | disposition home or self-care (01) ==
LOC: OB LAC 13:01
PROVIDERS: Visit Provider Obstetrics & Gynecology
DX: Z39.1 Encounter for care and examination of lactating mother (principal)
CPT/HCPCS: G0463

== ENCOUNTER 2024-09-25 15:30 | Outpatient (RCR) | payer BC, SELFPAY | END 2024-12-27 15:19 | disposition home or self-care (01) | PROVIDERS: Visit Provider Registered Nurse | DX: N81.89 Other female genital prolapse (principal); K59.00 Constipation, unspecified; N39.3 Stress incontinence (female) (male); R27.8 Other lack of coordination; Z51.89 Encounter for other specified aftercare | CPT/HCPCS: 97110; 97112; 97161; 97535 ==